=== PATIENT | male | born 1990 | race Two or more races ===

== ENCOUNTER 2018-07-18 11:27 | Emergency (ER) | payer BC, MEDICAID ==
[~2018-07-18] VITALS: Ht 185.4 cm; Wt 68.0 kg
[2018-07-18] MEDS ORDERED: Sodium Chloride 500ML 500 ML IV ONE (11:49)
[2018-07-18 11:58] VITALS: BP 107/65
[2018-07-18 12:01] LABS: BASOPHILS % (AUTO) 1.1 % (0.0-2.0); EOSINOPHILS % (AUTO) 0.3 % (0.0-3.0); HEMATOCRIT 40.3 % (42.0-52.0); HEMOGLOBIN 13.4 G/DL (14.2-18.0); LYMPHOCYTES % (AUTO) 22.1 % (20.0-45.0); MEAN CORPUSCULAR VOLUME 89 FL (80-99); MONOCYTES % (AUTO) 9.9 % (1.0-10.0); NEUTROPHILS % (AUTO) 66.6 % (45.0-75.0); PLATELET COUNT 210 K/UL (150-450); RED BLOOD COUNT 4.52 M/UL (4.70-6.10); RED CELL DISTRIBUTION WIDTH 12.7 % (11.6-14.8); WHITE BLOOD COUNT 7.7 K/UL (4.8-10.8)
[2018-07-18 12:11] LABS: ANION GAP 7 mmol/L (5-15); BLOOD UREA NITROGEN 13 mg/dL (7-18); CALCIUM 9.3 MG/DL (8.5-10.1); CARBON DIOXIDE 32 MMOL/L (21-32); CHLORIDE 105 MMOL/L (98-107); CREATININE 0.7 MG/DL (0.55-1.30); POTASSIUM 4.5 MMOL/L (3.5-5.1); SODIUM 144 MMOL/L (136-145)
[2018-07-18 12:25] LABS: ALANINE AMINOTRANSFERASE 26 U/L (12-78); ALBUMIN 3.4 G/DL (3.4-5.0); ALKALINE PHOSPHATASE 36 U/L (46-116); ASPARTATE AMINO TRANSFERASE 13 U/L (15-37); BILIRUBIN,TOTAL 0.4 MG/DL (0.2-1.0); CKMB < 0.5 NG/ML (0.0-3.6); CREATINE KINASE 41 U/L (26-308)
--- NOTE | 2018-07-18 12:35 | Emergency Room Report ---
History of Present Illness General Chief Complaint: Seizure Source: Patient, EMS Present Illness HPI Patient presents with reports of seizure activity and primary care physician office patient appears to be somewhat postictal and is not able to give full history There is no report from the primary care facility Patient was provided with history of previous seizure disorder Unknown regarding medication Unknown regarding last seizure activity History of present illness is initially limited secondary to the patient's ability to provide history there was no reports of vomiting or diarrhea Allergies: Coded Allergies: UNABLE TO ASSESS (Unverified , 07/18/18) Patient History Past Medical History: see triage record Pertinent Family History: none Reviewed Nursing Documentation: PMH: Agreed; PSxH: Agreed Nursing Documentation-PMH Hx Seizures: Yes Review of Systems All Other Systems: limited - Other than the ones mentioned in the history of present illness all others are reviewed however they do stay limited due to the patient's mental status Physical Exam Vital Signs Date Time Temp Pulse Resp B/P (MAP) Pulse Ox O2 Delivery O2 Flow Rate FiO2 07/18/18 11:24 98.2 70 18 126/76 98 Room Air Sp02 EP Interpretation: reviewed, normal General Appearance: no apparent distress Head: normocephalic, atraumatic Eyes: bilateral eye PERRL, bilateral eye EOMI ENT: hearing grossly normal, normal pharynx Neck: full range of motion, supple Respiratory: normal inspection, chest non-tender, lungs clear Cardiovascular #1: regular rate, rhythm, no edema Gastrointestinal: non tender, soft Musculoskeletal: normal inspection Neurologic: alert, responsive - Some underlying confusion possibly secondary to postictal state Skin: normal color, no rash Medical Decision Making Diagnostic Impression: Primary Impression: Seizure disorder ER Course Patient's friend/surfacing machine operator has arrived, he reports the patient was recently in the hospital was seizure activity Had some of his medications altered patient is on Keppra and Depakote Initially multiple other differentials were considered therefore patient did have extensive blood work initiated all within normal limits CT head no acute pathology, nonspecific other findings clinically not correlating at this time Patient sitting in bed is eating and is at baseline levels neurologically. This is confirmed with his friend/surfacing machine operator Today's seizure was not as aggressive as previous seizures, he reports the patient essentially became still for a few seconds and was improved after that Also reports they have follow-up with neurology today Labs Test 07/18/18 11:46 07/18/18 13:20 White Blood Count 7.7 K/UL (4.8-10.8) Red Blood Count 4.52 M/UL (4.70-6.10) Hemoglobin 13.4 G/DL (14.2-18.0) Hematocrit 40.3 % (42.0-52.0) Mean Corpuscular Volume 89 FL (80-99) Mean Corpuscular Hemoglobin 29.7 PG (27.0-31.0) Mean Corpuscular Hemoglobin Concent 33.3 G/DL (32.0-36.0) Red Cell Distribution Width 12.7 % (11.6-14.8) Platelet Count 210 K/UL (150-450) Mean Platelet Volume 6.7 FL (6.5-10.1) Neutrophils (%) (Auto) 66.6 % (45.0-75.0) Lymphocytes (%) (Auto) 22.1 % (20.0-45.0) Monocytes (%) (Auto) 9.9 % (1.0-10.0) Eosinophils (%) (Auto) 0.3 % (0.0-3.0) Basophils (%) (Auto) 1.1 % (0.0-2.0) Sodium Level 144 MMOL/L (136-145) Potassium Level 4.5 MMOL/L (3.5-5.1) Chloride Level 105 MMOL/L (98-107) Carbon Dioxide Level 32 MMOL/L (21-32) Anion Gap 7 mmol/L (5-15) Blood Urea Nitrogen 13 mg/dL (7-18) Creatinine 0.7 MG/DL (0.55-1.30) Estimat Glomerular Filtration Rate > 60 mL/min (>60) Glucose Level 88 MG/DL (74-106) Calcium Level 9.3 MG/DL (8.5-10.1) Total Bilirubin 0.4 MG/DL (0.2-1.0) Aspartate Amino Transf (AST/SGOT) 13 U/L (15-37) Alanine Aminotransferase (ALT/SGPT) 26 U/L (12-78) Alkaline Phosphatase 36 U/L (46-116) Total Creatine Kinase 41 U/L (26-308) Creatine Kinase MB < 0.5 NG/ML (0.0-3.6) Creatine Kinase MB Relative Index Total Protein 6.9 G/DL (6.4-8.2) Albumin 3.4 G/DL (3.4-5.0) Globulin 3.5 g/dL Albumin/Globulin Ratio 1.0 (1.0-2.7) Lipase 336 U/L (73-393) CT/MRI/US Diagnostic Results CT/MRI/US Diagnostic Results : Impression CT headImpression: Negative for acute intracranial bleed or mass effect 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 versus prominent perivascular space, favor the latter given patient's age Consider contrast MRI for more sensitive workup of patient's stated clinical history of seizure disorder Last Vital Signs Date Time Temp Pulse Resp B/P (MAP) Pulse Ox O2 Delivery O2 Flow Rate FiO2 07/18/18 11:58 63 20 Room Air 07/18/18 11:58 98.2 107/65 96 Status: improved Disposition: HOME, SELF-CARE Condition: Improved Scripts Unable to Obtain Active Prescriptions or Reported Meds Additional Instructions: Patient is provided with the discharge instructions notified to follow up with primary doctor in the next 2-3 days otherwise return to the er with any worsening symptoms. Please note that this report is being documented using Sign[employer] technology. This can lead to erroneous entry secondary to incorrect interpretation by the dictating instrument. Robinson rGove DO Jul 18, 2018 12:35
--- NOTE | 2018-07-18 12:49 | Diagnostic Imaging Report ---
Indication: Seizures Technique: Continuous helical CT scanning of the head was performed without intravenous contrast material. Axial and coronal 5 mm sections were generated. Radiation dose was minimized using automated exposure control Dose: Total Dose Length Product - DLP 1333.[address] Dose Index - CTDIvol(s) 70.38 mGy. Comparison: none Findings: The ventricular system is normal in size and configuration. There is no shift of midline structures. No abnormal extra-axial fluid collections are noted. There is no evidence of intracerebral bleeding. Hypoattenuating focus in the posterolateral right basal ganglia region most likely represents a prominent perivascular space, although could represent a small lacunar infarct. Normal solomon-white differentiation. Intact calvarium. Visualized orbits and sinuses are unremarkable. 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
[2018-07-18] MEDS ORDERED: Depakote 500mg tab ORAL ONE (13:30)
[2018-07-18 13:32] VITALS: BP_SYST 107; BP_SYST 128; BP_DIAS 65; BP_DIAS 71
[2018-07-18 13:43] LABS: APPEARANCE,URINE CLEAR; BILIRUBIN, URINE NEGATIVE (NEGATIVE); GLUCOSE, URINE (UA) NEGATIVE (NEGATIVE); KETONES,URINE NEGATIVE (NEGATIVE); LEUKOCYTE ESTERASE ,URINE NEGATIVE (NEGATIVE); NITRITE,URINE NEGATIVE (NEGATIVE); PH,URINE 7 (4.5-8.0); PROTEIN,URINE NEGATIVE (NEGATIVE); UROBILINOGEN,URINE NORMAL MG/DL (0.0-1.0)
[2018-07-18 13:46] LABS: COLOR,URINE YELLOW
--- NOTE | 2018-07-19 17:16 | Cardiology Report ---
APPROVED REPORT EKG Measurement Heart [id number] [place] [id number] [id number] Sinus bradycardia Otherwise normal ECG
== END 2018-07-18 13:32 | disposition home or self-care (01) ==
LOC: EDBD 11:27 → EMR 12:56
DX: G40.909 Epilepsy, unspecified, not intractable, without status epilepticus (principal)
CPT/HCPCS: 36415; 70450; 80053; 80299; 80307; 81003; 82550; 82553; 82962; 83690; 85025; 93005; 99284; J7040